=== PATIENT | male | born 1950 | race Hispanic/Latino ===

== ENCOUNTER 2019-12-18 16:59 | Inpatient (IN) | payer MEDICAID, MEDICARE ==
[~2019-12-18] VITALS: Ht 175.3 cm; Wt 84.9 kg
[2019-12-18 19:42] LABS: EOSINOPHILS % (AUTO) 2.4 % (0.0-8.0); HEMATOCRIT 37.9 % (42-54); LYMPHOCYTES % (AUTO) 21.5 % (21.0-51.0); MEAN CORPUSCULAR HEMOGLOBIN 28.9 pg (27.0-33.0); MEAN CORPUSCULAR HGB CONC 31.7 g/dL (32.0-36.0); MEAN CORPUSCULAR VOLUME 91.3 fL (79-99); MONOCYTES % (AUTO) 5.1 % (3.0-13.0); NEUTROPHILS % (AUTO) 69.7 % (40.0-77.0); PLATELET COUNT (AUTO) 655 K/uL (130-400); RED BLOOD CELL COUNT(AUTO) 4.15 MIL/uL (4.50-6.20); RED CELL DISTRIBUTION WIDTH 12.6 % (11.0-15.5); WHITE BLOOD COUNT (AUTO) 10.5 K/uL (4.8-10.8)
[2019-12-18 19:53] LABS: CREATININE 1.6 mg/dL (0.5-1.5); POTASSIUM 5.5 mmol/L (3.5-5.1)
[2019-12-18 19:55] LABS: INR 0.95 (0.85-1.15); PARTIAL THROMBOPLASTIN TIME 25.2 SEC (26.3-35.5); PROTHROMBIN TIME 10.3 SEC (9.6-11.6)
[2019-12-18 19:58] LABS: ALBUMIN 3.1 g/dL (3.5-5.0); BILIRUBIN,TOTAL 0.3 mg/dL (0.2-1.0); CRP QUANTITATIVE 46.9 mg/L (0.00-9.0); TOTAL PROTEIN, SERUM 9.2 g/dL (6.0-8.3)
[2019-12-18 20:28] LABS: APPEARANCE,URINE Clear (CLEAR); BILIRUBIN,URINE Negative (NEGATIVE); COLOR,URINE Yellow (YELLOW); GLUCOSE, URINE (UA) Negative (NEGATIVE); KETONES,URINE Negative (NEGATIVE); LEUKOCYTE ESTERASE ,URINE Negative (NEGATIVE); NITRATE,URINE Negative (NEGATIVE); OCCULT BLOOD,URINE Negative (NEGATIVE); PROTEIN,URINE Negative (NEGATIVE)
[2019-12-18 20:50] LABS: ERYTHROCYTE SEDIMENTATION RATE 115 MM/HR (0-20)
[2019-12-18] MEDS ORDERED: VANCOMYCIN 1GM+NS 250ML 250 ML IV ONE (22:36)
[2019-12-18] MEDS ORDERED: SODIUM CHLORIDE 0.9% 1000ML 1,000 ML IV ONE (22:36)
[2019-12-18] MEDS ORDERED: VANCOMYCIN 1GM+NS 250ML 250 ML IV SCH (23:30)
[2019-12-18] MEDS ORDERED: ACETAMINOPHEN 325 MG TAB PO PRN ×2 (23:30)
[2019-12-18] MEDS ORDERED: ONDANSETRON HCL 4 MG/2 ML VIAL IV PRN (23:30)
[2019-12-18] MEDS ORDERED: RENAL DOSE IV SCH (23:30)
[2019-12-18] MEDS ORDERED: VANCOMYCIN PROTOCOL PER PHARMACY IV PRN (23:30)
[2019-12-19 05:31] LABS: BASOPHILS % (AUTO) 0.6 % (0.0-5.0); EOSINOPHILS % (AUTO) 3.5 % (0.0-8.0); HEMATOCRIT 33.4 % (42-54); MEAN CORPUSCULAR HEMOGLOBIN 29.6 pg (27.0-33.0); MEAN CORPUSCULAR HGB CONC 32.3 g/dL (32.0-36.0); MEAN CORPUSCULAR VOLUME 91.5 fL (79-99); MONOCYTES % (AUTO) 6.8 % (3.0-13.0); NEUTROPHILS % (AUTO) 62.8 % (40.0-77.0); PLATELET COUNT (AUTO) 555 K/uL (130-400); RED BLOOD CELL COUNT(AUTO) 3.65 MIL/uL (4.50-6.20); RED CELL DISTRIBUTION WIDTH 12.5 % (11.0-15.5); WHITE BLOOD COUNT (AUTO) 10.3 K/uL (4.8-10.8)
[2019-12-19] MEDS ORDERED: CEFTRIAXONE SODIUM 1 GM ONE ×2 (05:32→09:15)
[2019-12-19] MEDS ORDERED: FAMOTIDINE/PF 20 MG/2 ML VIAL IV ONE (05:32)
[2019-12-19 05:57] LABS: ALANINE AMINOTRANSFERASE 22 U/L (12-78); ALBUMIN 2.8 g/dL (3.5-5.0); ASPARTATE AMINOTRANSFERASE 27 U/L (10-37); BILIRUBIN,TOTAL 0.3 mg/dL (0.2-1.0); CARBON DIOXIDE 26 mmol/L (21-32); CHLORIDE 104 mmol/L (101-111); CREATININE 1.2 mg/dL (0.5-1.5); GLOMERULAR FILTR. RATE CALC 64 mL/min (>60); GLUCOSE,RANDOM 83 mg/dL (70-105); POTASSIUM 5.6 mmol/L (3.5-5.1); SODIUM SERUM 135 mmol/L (136-145); TOTAL PROTEIN, SERUM 7.4 g/dL (6.0-8.3); UREA NITROGEN, BLOOD 26 mg/dL (7-18)
[2019-12-19 06:01] LABS: HEMOGLOBIN A1C 7.1 % (4.0-6.0)
[2019-12-19 06:38] LABS: ERYTHROCYTE SEDIMENTATION RATE 115 MM/HR (0-20)
[2019-12-19] MEDS ORDERED: COMPOUND IV REFRIGERATED 1 EACH IVSOLN MISC PRN (08:45)
[2019-12-19] MEDS: LINAGLIPTIN 5 MG TABLET PO SCH (09:00)
[2019-12-19] MEDS: CEFTRIAXONE SODIUM 1 GM IV SCH ×2 (09:00→20:11)
[2019-12-19] MEDS: FAMOTIDINE/PF 20 MG/2 ML VIAL IV SCH ×2 (09:00→20:12)
[2019-12-19] MEDS ORDERED: SODIUM CHLORIDE 0.9% 100 ML IV ONE (09:18)
[2019-12-19] MEDS: VANCOMYCIN 1.25 GM in SODIUM CHLORIDE 0.9% 250 ML IV SCH ×2 (10:00→21:54)
[2019-12-19 12:10] VITALS: BP 165/71
[2019-12-19 13:19] VITALS: BP 166/76
--- NOTE | 2019-12-19 13:41 | NUR ---
CHART CHECK COMPLETED. Pt IS A 69 Y.O. MALE ADMITTED SECONDARY TO SKIN TEAR DUE TO TOPHACEOUS GOUT VS ACUTE OSTEOMYELITIS. Pt HAS A PAST MEDICAL HISTORY SIGNIFICANT FOR HYPERTENSION, DMII, HLD, TOPHACEOUS GOUT, L KNEE REPLACEMENT. Pt CURRENTLY ON REGULAR TEXTURE,THIN LIQUID DIET (CONSISTENT CARB). PLEASE REQUEST FORMAL SKILLED SPEECH/SWALLOW EVALUATION IF Pt PRESENTS WITH +S/S OF ASPIRATION SUCH COUGH RESPONSE, THROAT CLEAR, OR WET VOCAL QUALITY DURING P.O. Addendum: 12/19/19 at 1344 by GRISELDA VALLEJO, SPT ST Amended: Links added.
[2019-12-19 15:19] VITALS: BP 166/76
--- NOTE | 2019-12-19 15:23 | NUR ---
SPOKE TO PT ABOUT MRI AND PT REFUSED TREATMENT. EXPLAINED TO HIM THAT THE MRI WAS TO DETECT AN INFECTION IN THE BONE IF THERE IS ONE AND HE SAID HE DOES NOT WANT IT BECAUSE HE DOES NOT HAVE AN INFECTION. FAMILY WAS ALSO CALLED AND SON AND MOTHER SAID IT WAS UP TO HIM IF HE WANTED THE MRI OR NOT. DR. GUIDRY NOTIFIED OF REFUSAL. NO FURTHER ORDERS RECEIVED
[2019-12-19] MEDS: INSULIN HUMULIN R 100 UNIT/ML 3ML SQ SCH ×2 (16:30→20:18)
[2019-12-19] MEDS: VANCOMYCIN PROTOCOL PER PHARMACY IV SCH ×2 (18:30→23:32)
[2019-12-19] MEDS: SODIUM CHLORIDE 0.9% 1000ML 1,000 ML IV SCH ×2 (18:47→19:20)
--- NOTE | 2019-12-19 18:56 | NUR ---
DRESSING TO RIGHT ARM CHANGED PT STATING ITS WET. WOUND TO ELBOW HAD A YELLOW DISCHARGE OOZING OUT AND SKIN WAS RED. NO ODOR. WOUND CLEANED AND PLACED 4X4 AND MICHELLE.
[2019-12-19 19:32] VITALS: BP 175/72
--- NOTE | 2019-12-19 22:11 | NUR ---
LEFT ARM Dressing to left arm changed,open ulcer,with small amount of serousanguinous drainage,no foul smell,cleansed with Ns,covered with 4x4 and ernie dressing.Pt denies pain.
--- NOTE | 2019-12-19 23:23 | NUR ---
BHARATHI Stearns,re pt.s bp.
[2019-12-19 23:27] VITALS: BP 182/80
--- NOTE | 2019-12-19 23:48 | NUR ---
MD CALL BACK Dr Stearns called back,notified re pt.s bp.He placed new order.
[2019-12-19] MEDS ORDERED: AMLODIPINE BESYLATE 5 MG TAB ONE (23:50)
--- NOTE | 2019-12-19 23:59 | NUR ---
bp amlodipine given as per md order. minoxidil not available.
[2019-12-20] VITALS (9 sets, daily range): BP systolic 138–185; BP diastolic 60–88
--- NOTE | 2019-12-20 00:01 | NUR ---
24 HR URINE COLLECTION Pt instructed re 24 urine collection for Uric acid,verbalized understanding.
[2019-12-20] MEDS ORDERED: MINOXIDIL 2.5 MG TAB ONE (00:15)
--- NOTE | 2019-12-20 00:28 | NUR ---
ASTRID Colon given this time.
--- NOTE | 2019-12-20 02:31 | NUR ---
FF UP Bp rechecked 170/60.Pt gets out of bed by himself,encouraged to call for help.
[2019-12-20] MEDS: SODIUM CHLORIDE 0.9% 1000ML 1,000 ML IV SCH ×2 (02:55→15:20)
[2019-12-20] MEDS: HYDRALAZINE HCL 20 MG/ML VIAL IV PRN (04:12)
--- NOTE | 2019-12-20 04:15 | NUR ---
HYDRALAZINE Hydralazine given for bp sys>160.
--- NOTE | 2019-12-20 04:55 | NUR ---
PAGED Paged Dr dela cruz,pt states he does not feel good.Pt appears anxious,bp 189/82,heart rate 100 sinus tach on bedside monitor,02 sat99% room air,resp 20.Blood sugar checked 90.
[2019-12-20] MEDS: MORPHINE SULFATE 2 MG/ML 1ML SYG IV PRN ×2 (05:17→09:38)
--- NOTE | 2019-12-20 05:22 | NUR ---
PAIN Morphine given for c/o pain to left arm.
--- NOTE | 2019-12-20 05:37 | NUR ---
MED EFFECT Pt appears more calm,bp 156/66.
[2019-12-20] MEDS: INSULIN HUMULIN R 100 UNIT/ML 3ML SQ SCH ×4 (05:57→21:00)
--- NOTE | 2019-12-20 06:17 | NUR ---
MD Dr Stearns came to see pt.Update given,see new orders.
[2019-12-20] MEDS: FAMOTIDINE/PF 20 MG/2 ML VIAL IV SCH ×2 (08:47→21:29)
[2019-12-20] MEDS: CEFTRIAXONE SODIUM 1 GM IV SCH ×2 (08:48→21:29)
[2019-12-20] MEDS: LINAGLIPTIN 5 MG TABLET PO SCH (08:48)
[2019-12-20] MEDS: METOPROLOL TARTRATE 25 MG TAB PO SCH (08:48)
[2019-12-20] MEDS: AMLODIPINE BESYLATE 5 MG TAB PO SCH ×3 (08:48→20:04)
[2019-12-20] MEDS ORDERED: MINOXIDIL 2.5 MG TAB PO SCH (09:00)
[2019-12-20] MEDS: VANCOMYCIN 1.25 GM in SODIUM CHLORIDE 0.9% 250 ML IV SCH ×2 (10:02→22:40)
[2019-12-20] MEDS ORDERED: GADODIAMIDE 10 MMOL/20 ML VIAL IV ONE (13:46)
--- NOTE | 2019-12-20 15:45 | NUR ---
WOUND CARE NURSE HERE TO ASSESS RT AND LEFT ELBOW WOUND CLEASE WITH SALINE, APPLY MEDIHONEYAND COVER WITH GAUZE, KERLIX, TAPE - DAILY AND PRN
--- NOTE | 2019-12-20 16:15 | NUR ---
[facility] CONSULT PATIENT ASSESSED REQUESTED: [facility] RECOMMENDATIONS SUBMITTED AND REPORT GIVEN TO PATIENT'S NURSE. Addendum: 12/21/19 at 0809 by ISRRAEL GRAHAM LVN Amended: Links added.
--- NOTE | 2019-12-20 16:48 | NUR ---
HA NOTE/IA UNABLE TO MEET WITH PATIENT IN ROOM. SON CALLED, HARINDER HURT [phone]. PER SON, PATIENT LIVES WITH SPOUSE, HAS USE OF CANE ONLY WHEN FEELS WEAK, INDEPENDENT FOR THE MOST PART WITH ADLS BUT REQUIRES ASSISTANCE WITH DRESSING, HAS PROVIDER 30HR PER WEEK, AND SON FEELS SAFE FOR PATIENT TO RETURN HOME ONCE DISCHARGED FROM HOSPITAL ONCE MEDICALLY CLEARED. Addendum: 12/20/19 at 1651 by CLAIRE AMBROSE RN CM Amended: Links added.
[2019-12-20] MEDS: MINOXIDIL 2.5 MG TAB PO SCH ×2 (20:03)
[2019-12-21] VITALS: BP 185/92
[2019-12-21] MEDS: SODIUM CHLORIDE 0.9% 1000ML 1,000 ML IV SCH ×2 (01:05→09:57)
[2019-12-21] MEDS: HYDRALAZINE HCL 20 MG/ML VIAL IV PRN (01:05)
[2019-12-21] MEDS: MORPHINE SULFATE 2 MG/ML 1ML SYG IV PRN (01:06)
[2019-12-21 04:15] VITALS: BP 147/67
[2019-12-21 05:19] LABS: BASOPHILS % (AUTO) 0.7 % (0.0-5.0); EOSINOPHILS % (AUTO) 2.2 % (0.0-8.0); HEMATOCRIT 32.5 % (42-54); MEAN CORPUSCULAR HEMOGLOBIN 29.9 pg (27.0-33.0); MEAN CORPUSCULAR HGB CONC 32.9 g/dL (32.0-36.0); MEAN CORPUSCULAR VOLUME 90.8 fL (79-99); MONOCYTES % (AUTO) 6.8 % (3.0-13.0); NEUTROPHILS % (AUTO) 75.9 % (40.0-77.0); PLATELET COUNT (AUTO) 513 K/uL (130-400); RED BLOOD CELL COUNT(AUTO) 3.58 MIL/uL (4.50-6.20); WHITE BLOOD COUNT (AUTO) 12.4 K/uL (4.8-10.8)
[2019-12-21 05:24] LABS: CREATININE 1.2 mg/dL (0.5-1.5); CRP QUANTITATIVE 61.8 mg/L (0.00-9.0); POTASSIUM 4.2 mmol/L (3.5-5.1)
[2019-12-21 05:37] LABS: B-TYPE NATRIURETIC PEPTIDE 56 pg/mL (0-100)
[2019-12-21] MEDS: INSULIN HUMULIN R 100 UNIT/ML 3ML SQ SCH ×2 (06:10→11:30)
[2019-12-21 07:30] VITALS: BP 154/85
[2019-12-21] MEDS: METOPROLOL TARTRATE 25 MG TAB PO SCH (08:52)
[2019-12-21] MEDS: AMLODIPINE BESYLATE 5 MG TAB PO SCH (08:52)
[2019-12-21] MEDS: LINAGLIPTIN 5 MG TABLET PO SCH (08:52)
[2019-12-21] MEDS: CEFTRIAXONE SODIUM 1 GM IV SCH (08:52)
[2019-12-21] MEDS: FAMOTIDINE/PF 20 MG/2 ML VIAL IV SCH (08:52)
[2019-12-21] MEDS ORDERED: HONEY 1 APPL/ML TUBE TP SCH (09:00)
[2019-12-21] MEDS: VANCOMYCIN 1.25 GM in SODIUM CHLORIDE 0.9% 250 ML IV SCH (10:14)
[2019-12-21 11:34] VITALS: BP 141/57
[2019-12-21] MEDS ORDERED: CEFUROXIME AXETIL 250 MG TABLET PO SCH (13:45)
--- NOTE | 2019-12-21 17:30 | NUR ---
pt discharged to son, fu/with pcp on wednesday, and wound care clinic on wednesday. new prescription, for ceftin given to son.
[2019-12-22] MEDS ORDERED: METOPROLOL TARTRATE 25 MG TAB PO SCH (09:00)
[2019-12-22] MEDS ORDERED: ALLOPURINOL 100 MG TABLET PO SCH (09:00)
== END 2019-12-21 17:45 | disposition home or self-care (01) | DRG 605 ==
LOC: EDH 16:59 → EDHIP 23:20 → DAHIP 12-19 12:44
PROVIDERS: ADMIT Internal Medicine; ATTEND Internal Medicine
DX: S51.012A Laceration without foreign body of left elbow, initial encounter (principal); L03.114 Cellulitis of left upper limb; E87.1 Hypo-osmolality and hyponatremia; L02.414 Cutaneous abscess of left upper limb; M1A.9XX1 Chronic gout, unspecified, with tophus (tophi); I10 Essential (primary) hypertension; E11.9 Type 2 diabetes mellitus without complications; E78.5 Hyperlipidemia, unspecified; Z96.653 Presence of artificial knee joint, bilateral; E87.5 Hyperkalemia; M13.80 Other specified arthritis, unspecified site; Z53.20 Procedure and treatment not carried out because of patient's decision for unspecified reasons; E66.9 Obesity, unspecified; Z68.27 Body mass index [BMI] 27.0-27.9, adult; Y93.89 Activity, other specified; Y92.89 Other specified places as the place of occurrence of the external cause; Y99.8 Other external cause status; Z79.899 Other long term (current) drug therapy; Z91.19 Patient's noncompliance with other medical treatment and regimen; Z83.3 Family history of diabetes mellitus
CPT/HCPCS: 36415; 71045; 73080; 80048; 80053; 80202; 81003; 82360; 82948; 83036; 83880; 84145; 84550; 84560; 85025; 85610; 85651; 85730; 86140; 87040; 87070; 87076; 87077; 87186; A9579; G0378; J0360; J0696; J3370; J3490; J7030; J7050

== ENCOUNTER 2021-11-04 20:18 | Inpatient (IN) | payer MEDICARE ==
[~2021-11-04] VITALS: Ht 175.3 cm; Wt 92.5 kg
[2021-11-04] MEDS ORDERED: 0.9%NACL 1000ML 1,000 ML IV ONE (22:00)
[2021-11-04] MEDS ORDERED: VANCOMYCIN 1G VIAL IVPB ONE (22:00)
[2021-11-04] MEDS ORDERED: MORPHINE 4 MG SYG IVP ONE (22:00)
[2021-11-04] MEDS ORDERED: KETOROLAC 15MG/ML VIAL (15MG/ML) IV ONE (22:00)
[2021-11-04] MEDS ORDERED: ONDANSETRON 4MG INJ IVP ONE (22:00)
[2021-11-04 22:19] LABS: BASOPHILS % (AUTO) 0.3 % (0.0-5.0); EOSINOPHILS % (AUTO) 0.8 % (0.0-8.0); HEMATOCRIT 36.9 % (42-54); LYMPHOCYTES % (AUTO) 11.6 % (21.0-51.0); MEAN CORPUSCULAR HEMOGLOBIN 30.7 pg (27.0-33.0); MEAN CORPUSCULAR HGB CONC 33.1 g/dL (32.0-36.0); MEAN CORPUSCULAR VOLUME 92.9 fL (79-99); MONOCYTES % (AUTO) 5.4 % (3.0-13.0); NEUTROPHILS % (AUTO) 81.4 % (40.0-77.0); PLATELET COUNT (AUTO) 379 K/uL (130-400); RED BLOOD CELL COUNT(AUTO) 3.97 MIL/uL (4.50-6.20); WHITE BLOOD COUNT (AUTO) 14.3 K/uL (4.8-10.8)
[2021-11-04 22:32] LABS: CREATININE 1.3 mg/dL (0.5-1.5); POTASSIUM 4.2 mmol/L (3.5-5.1)
[2021-11-04 22:37] LABS: ALBUMIN 3.3 g/dL (3.5-5.0); BILIRUBIN,TOTAL 0.3 mg/dL (0.2-1.0); TOTAL PROTEIN, SERUM 8.9 g/dL (6.0-8.3); URIC ACID 8.9 mg/dL (2.6-7.2)
[2021-11-04] MEDS: ZOSYN 3.375GM +NS 50ML IV SCH (22:56)
[2021-11-04] MEDS ORDERED: VANCOMYCIN 1G/250ML KIT 250 ML IV ONE (23:25)
[2021-11-04] MEDS ORDERED: VANCOMYCIN PROTOCOL PER PHARMACY IV PRN (23:30)
[2021-11-04] MEDS ORDERED: SOLU-MEDROL 40MG VIAL IVP ONE (23:30)
[2021-11-04] MEDS ORDERED: ONDANSETRON 4MG INJ IV PRN (23:30)
[2021-11-04] MEDS ORDERED: ACETAMINOPHEN 325 MG TAB PO PRN (23:30)
[2021-11-05] MEDS ORDERED: INDOMETHACIN 25 MG CAP PO SCH
[2021-11-05] MEDS: CEFEPIME HCL 2 GM VIAL IVP SCH ×3 (01:01→22:56)
[2021-11-05] MEDS ORDERED: SOLU-MEDROL 40MG VIAL ONE (01:03)
[2021-11-05 05:38] LABS: BASOPHILS % (AUTO) 0.3 % (0.0-5.0); EOSINOPHILS % (AUTO) 0.5 % (0.0-8.0); HEMATOCRIT 40.2 % (42-54); LYMPHOCYTES % (AUTO) 9.3 % (21.0-51.0); MEAN CORPUSCULAR HEMOGLOBIN 30.6 pg (27.0-33.0); MEAN CORPUSCULAR HGB CONC 32.8 g/dL (32.0-36.0); MEAN CORPUSCULAR VOLUME 93.3 fL (79-99); MONOCYTES % (AUTO) 0.9 % (3.0-13.0); NEUTROPHILS % (AUTO) 88.5 % (40.0-77.0); PLATELET COUNT (AUTO) 401 K/uL (130-400); RED BLOOD CELL COUNT(AUTO) 4.31 MIL/uL (4.50-6.20); WHITE BLOOD COUNT (AUTO) 15.2 K/uL (4.8-10.8)
[2021-11-05 05:47] LABS: HEMOGLOBIN A1C 6.4 % (4.0-6.0)
[2021-11-05] MEDS: MORPHINE 4 MG SYG IVP PRN ×3 (05:47→21:22)
[2021-11-05 05:58] LABS: CREATININE 1.3 mg/dL (0.5-1.5); MAGNESIUM 1.9 mg/dL (1.80-2.40); PHOSPHORUS 3.8 mg/dL (2.5-4.9); POTASSIUM 4.7 mmol/L (3.5-5.1)
[2021-11-05] MEDS: INSULIN HUMULIN R 100 UNIT/ML 3ML SQ SCH ×4 (07:30→21:00)
[2021-11-05 08:45] VITALS: BP 188/76
[2021-11-05] MEDS: FAMOTIDINE 20MG VIAL IV SCH (09:00)
[2021-11-05] MEDS ORDERED: VANCOMYCIN 1G/250ML KIT 250 ML IV SCH (09:00)
[2021-11-05 11:25] VITALS: BP 161/76
[2021-11-05] MEDS: ALLOPURINOL 100 MG TABLET PO SCH ×2 (12:00)
[2021-11-05] MEDS: ENOXAPARIN SODIUM 40 MG/0.4 ML SYRINGE SQ SCH (12:00)
[2021-11-05] MEDS ORDERED: ERGO500093 PO (15:05)
[2021-11-05] MEDS ORDERED: ATOR10TA69 PO (15:05)
[2021-11-05] MEDS ORDERED: NEBI10TA12 PO (15:05)
[2021-11-05] MEDS ORDERED: AMLO-143 PO (15:05)
[2021-11-05 15:20] VITALS: BP 166/80
[2021-11-05 20:00] VITALS: BP 204/97
[2021-11-05] MEDS: VANCOMYCIN 500MG+NS 100ML 100 ML IV SCH (21:21)
[2021-11-05] MEDS: ZOSYN 3.375GM +NS 50ML IV SCH (22:00)
[2021-11-05] MEDS ORDERED: 0.9% NACL 500ML IV.SOLN 500 ML IV ONE (22:46)
[2021-11-06] VITALS (7 sets, daily range): BP systolic 120–199; BP diastolic 63–90
[2021-11-06 04:37] LABS: BASOPHILS % (AUTO) 0.2 % (0.0-5.0); EOSINOPHILS % (AUTO) 0.4 % (0.0-8.0); HEMATOCRIT 32.2 % (42-54); LYMPHOCYTES % (AUTO) 15.4 % (21.0-51.0); MEAN CORPUSCULAR HEMOGLOBIN 30.5 pg (27.0-33.0); MEAN CORPUSCULAR HGB CONC 32.9 g/dL (32.0-36.0); MEAN CORPUSCULAR VOLUME 92.8 fL (79-99); MONOCYTES % (AUTO) 3.6 % (3.0-13.0); NEUTROPHILS % (AUTO) 79.8 % (40.0-77.0); PLATELET COUNT (AUTO) 390 K/uL (130-400); RED BLOOD CELL COUNT(AUTO) 3.47 MIL/uL (4.50-6.20); RED CELL DISTRIBUTION WIDTH 11.9 % (11.0-15.5)
[2021-11-06 04:56] LABS: ALBUMIN 2.6 g/dL (3.5-5.0); BILIRUBIN,TOTAL 0.3 mg/dL (0.2-1.0); CREATININE 1.3 mg/dL (0.5-1.5); POTASSIUM 4.4 mmol/L (3.5-5.1); TOTAL PROTEIN, SERUM 7.1 g/dL (6.0-8.3)
[2021-11-06] MEDS: INSULIN HUMULIN R 100 UNIT/ML 3ML SQ SCH ×4 (06:36→21:00)
[2021-11-06] MEDS: MORPHINE 4 MG SYG IVP PRN (07:51)
[2021-11-06] MEDS: FAMOTIDINE 20MG VIAL IV SCH (08:28)
[2021-11-06] MEDS: ALLOPURINOL 100 MG TABLET PO SCH (08:28)
[2021-11-06] MEDS: ENOXAPARIN SODIUM 40 MG/0.4 ML SYRINGE SQ SCH (08:29)
[2021-11-06] MEDS: VANCOMYCIN 500MG+NS 100ML 100 ML IV SCH (10:17)
[2021-11-06] MEDS: CEFEPIME HCL 2 GM VIAL IVP SCH (11:13)
[2021-11-06] MEDS ORDERED: LABETALOL 20MG VIAL IV PRN (13:00)
[2021-11-06] MEDS ORDERED: LISINOPRIL 10 MG TABLET PO SCH (13:55)
[2021-11-06] MEDS: NIFEDIPINE 10 MG CAP PO SCH (15:01)
[2021-11-07] VITALS (27 sets, daily range): BP systolic 126–180; BP diastolic 54–124
[2021-11-07] MEDS: VANCOMYCIN 500MG+NS 100ML 100 ML IV SCH (01:06)
[2021-11-07] MEDS: CEFEPIME HCL 2 GM VIAL IVP SCH (01:07)
[2021-11-07] MEDS: ATORVASTATIN 10 MG TABLET PO SCH ×2 (01:07→20:00)
[2021-11-07] MEDS: NIFEDIPINE 10 MG CAP PO SCH (01:07)
[2021-11-07] MEDS: MORPHINE 4 MG SYG IVP PRN ×3 (01:17→17:47)
[2021-11-07 05:07] LABS: BASOPHILS % (AUTO) 0.5 % (0.0-5.0); EOSINOPHILS % (AUTO) 4.4 % (0.0-8.0); HEMATOCRIT 34.3 % (42-54); LYMPHOCYTES % (AUTO) 27.2 % (21.0-51.0); MEAN CORPUSCULAR HEMOGLOBIN 30.3 pg (27.0-33.0); MEAN CORPUSCULAR HGB CONC 32.7 g/dL (32.0-36.0); MEAN CORPUSCULAR VOLUME 92.7 fL (79-99); MONOCYTES % (AUTO) 4.4 % (3.0-13.0); PLATELET COUNT (AUTO) 377 K/uL (130-400); RED CELL DISTRIBUTION WIDTH 12.1 % (11.0-15.5); WHITE BLOOD COUNT (AUTO) 9.6 K/uL (4.8-10.8)
[2021-11-07 05:29] LABS: ALBUMIN 2.7 g/dL (3.5-5.0); BILIRUBIN,TOTAL 0.2 mg/dL (0.2-1.0); CREATININE 1.3 mg/dL (0.5-1.5); CRP QUANTITATIVE 38.1 mg/L (0.00-9.0); POTASSIUM 4.3 mmol/L (3.5-5.1)
[2021-11-07 05:32] LABS: HEMOGLOBIN A1C 6.5 % (4.0-6.0)
[2021-11-07] MEDS: INSULIN HUMULIN R 100 UNIT/ML 3ML SQ SCH ×4 (05:46→20:17)
[2021-11-07] MEDS: ALLOPURINOL 100 MG TABLET PO SCH (09:00)
[2021-11-07] MEDS: ENOXAPARIN SODIUM 40 MG/0.4 ML SYRINGE SQ SCH (09:00)
[2021-11-07] MEDS ORDERED: LISINOPRIL 10 MG TABLET PO SCH (09:00)
[2021-11-07] MEDS ORDERED: RENAL DOSE IV SCH (09:30)
[2021-11-07] MEDS: FAMOTIDINE 20MG VIAL IV SCH (09:42)
[2021-11-07] MEDS: NAFCILLIN 2GM+ NS 100ML 100 ML IV SCH ×3 (13:43→20:00)
[2021-11-07] MEDS ORDERED: 0.9%NACL 1000ML 1,000 ML IV ONE (13:54)
[2021-11-07] MEDS ORDERED: GLYCOPYRROLATE 1 MG/5 ML SYRINGE ONE (15:58)
[2021-11-07] MEDS ORDERED: ROCURONIUM 10MG/1ML SYR 10 MG/ML ML ONE (15:58)
[2021-11-07] MEDS ORDERED: MIDAZOLAM HCL 1 MG/ML 2ML VIAL ONE (16:02)
[2021-11-07] MEDS ORDERED: SUCCINYLCHOLINE 200MG/10ML SYR ONE (16:06)
[2021-11-07] MEDS ORDERED: EPHEDRINE SULFATE 50 MG/ML AMPULE ONE (16:12)
[2021-11-07] MEDS ORDERED: LIDOCAINE HCL 4% LTA SOL 4 ML VIAL ONE (16:13)
[2021-11-07] MEDS ORDERED: FENTANYL CITRATE PF 50 MCG/1 ML 2ML VIAL ONE (16:20)
[2021-11-07] MEDS ORDERED: ONDANSETRON 4MG INJ ONE (16:49)
[2021-11-07] MEDS ORDERED: MEPERIDINE-PF 25 MG/ML SYG ONE ×2 (17:01→17:12)
[2021-11-07] MEDS ORDERED: KETOROLAC 15MG/ML VIAL (15MG/ML) ONE (17:11)
[2021-11-08] VITALS (7 sets, daily range): BP systolic 139–165; BP diastolic 63–80
[2021-11-08] MEDS: NAFCILLIN 2GM+ NS 100ML 100 ML IV SCH ×7 (00:04→23:26)
[2021-11-08] MEDS: MORPHINE 4 MG SYG IVP PRN ×4 (00:10→22:26)
[2021-11-08] MEDS ORDERED: MORPHINE 2 MG SYG ONE (04:26)
[2021-11-08] MEDS ORDERED: MORPHINE 2 MG SYG IVP ONE (04:30)
[2021-11-08] MEDS: INSULIN HUMULIN R 100 UNIT/ML 3ML SQ SCH ×4 (06:00→20:09)
[2021-11-08 06:02] LABS: BASOPHILS % (AUTO) 0.5 % (0.0-5.0); EOSINOPHILS % (AUTO) 3.6 % (0.0-8.0); HEMATOCRIT 32.9 % (42-54); MEAN CORPUSCULAR HEMOGLOBIN 30.6 pg (27.0-33.0); MEAN CORPUSCULAR HGB CONC 32.5 g/dL (32.0-36.0); NEUTROPHILS % (AUTO) 66.5 % (40.0-77.0); PLATELET COUNT (AUTO) 383 K/uL (130-400); RED CELL DISTRIBUTION WIDTH 12.3 % (11.0-15.5); WHITE BLOOD COUNT (AUTO) 9.3 K/uL (4.8-10.8)
[2021-11-08 06:28] LABS: ALBUMIN 2.7 g/dL (3.5-5.0); BILIRUBIN,TOTAL 0.6 mg/dL (0.2-1.0); CREATININE 1.3 mg/dL (0.5-1.5); CRP QUANTITATIVE 32.4 mg/L (0.00-9.0); POTASSIUM 4.4 mmol/L (3.5-5.1)
[2021-11-08] MEDS: LISINOPRIL 10 MG TABLET PO SCH (08:35)
[2021-11-08] MEDS: ENOXAPARIN SODIUM 40 MG/0.4 ML SYRINGE SQ SCH (08:35)
[2021-11-08] MEDS: FAMOTIDINE 20MG VIAL IV SCH (08:35)
[2021-11-08] MEDS: NIFEDIPINE ER 30 MG TAB PO SCH (08:35)
[2021-11-08] MEDS: ALLOPURINOL 100 MG TABLET PO SCH (08:35)
[2021-11-08] MEDS: ATORVASTATIN 10 MG TABLET PO SCH (20:11)
[2021-11-09 00:27] VITALS: BP 129/72
[2021-11-09] MEDS: NAFCILLIN 2GM+ NS 100ML 100 ML IV SCH ×5 (04:04→20:30)
[2021-11-09] MEDS: MORPHINE 4 MG SYG IVP PRN ×2 (04:06→16:18)
[2021-11-09 04:16] VITALS: BP 157/53
[2021-11-09 05:01] LABS: BASOPHILS % (AUTO) 0.4 % (0.0-5.0); EOSINOPHILS % (AUTO) 3.6 % (0.0-8.0); LYMPHOCYTES % (AUTO) 24.5 % (21.0-51.0); MEAN CORPUSCULAR HEMOGLOBIN 30.6 pg (27.0-33.0); MEAN CORPUSCULAR HGB CONC 32.3 g/dL (32.0-36.0); MEAN CORPUSCULAR VOLUME 94.9 fL (79-99); MONOCYTES % (AUTO) 5.5 % (3.0-13.0); NEUTROPHILS % (AUTO) 65.6 % (40.0-77.0); PLATELET COUNT (AUTO) 352 K/uL (130-400); RED BLOOD CELL COUNT(AUTO) 3.69 MIL/uL (4.50-6.20); RED CELL DISTRIBUTION WIDTH 12.2 % (11.0-15.5); WHITE BLOOD COUNT (AUTO) 9.1 K/uL (4.8-10.8)
[2021-11-09 05:19] LABS: ALBUMIN 2.8 g/dL (3.5-5.0); BILIRUBIN,TOTAL 0.7 mg/dL (0.2-1.0); CREATININE 1.2 mg/dL (0.5-1.5); CRP QUANTITATIVE 50.6 mg/L (0.00-9.0); POTASSIUM 4.1 mmol/L (3.5-5.1); TOTAL PROTEIN, SERUM 7.3 g/dL (6.0-8.3)
[2021-11-09] MEDS: INSULIN HUMULIN R 100 UNIT/ML 3ML SQ SCH ×4 (05:47→20:59)
[2021-11-09] MEDS ORDERED: HYDROMORPHONE 1 MG INJ ONE (06:48)
[2021-11-09] MEDS ORDERED: HYDROMORPHONE 1 MG INJ IVP SCH (07:00)
[2021-11-09 07:50] VITALS: BP 170/72
[2021-11-09] MEDS: FAMOTIDINE 20MG VIAL IV SCH (08:49)
[2021-11-09] MEDS: LISINOPRIL 10 MG TABLET PO SCH (08:49)
[2021-11-09] MEDS: NIFEDIPINE ER 30 MG TAB PO SCH (08:49)
[2021-11-09] MEDS: ENOXAPARIN SODIUM 40 MG/0.4 ML SYRINGE SQ SCH (08:50)
[2021-11-09] MEDS: ALLOPURINOL 100 MG TABLET PO SCH (09:39)
[2021-11-09 11:47] VITALS: BP 169/70
[2021-11-09 17:30] VITALS: BP 195/82
[2021-11-09 19:30] VITALS: BP 164/85
[2021-11-09] MEDS: ATORVASTATIN 10 MG TABLET PO SCH (20:30)
[2021-11-10] MEDS: NAFCILLIN 2GM+ NS 100ML 100 ML IV SCH ×3 (04:00→09:47)
[2021-11-10 07:05] VITALS: BP 184/83
[2021-11-10] MEDS: MORPHINE 4 MG SYG IVP PRN (07:29)
[2021-11-10] MEDS: INSULIN HUMULIN R 100 UNIT/ML 3ML SQ SCH ×2 (07:30→11:30)
[2021-11-10] MEDS: NIFEDIPINE ER 30 MG TAB PO SCH (08:36)
[2021-11-10] MEDS: FAMOTIDINE 20MG VIAL IV SCH (08:37)
[2021-11-10] MEDS: LISINOPRIL 10 MG TABLET PO SCH (08:38)
[2021-11-10] MEDS: ENOXAPARIN SODIUM 40 MG/0.4 ML SYRINGE SQ SCH (08:39)
[2021-11-10 09:18] LABS: HEMATOCRIT 45.6 % (42-54); MEAN CORPUSCULAR HEMOGLOBIN 30.6 pg (27.0-33.0); MEAN CORPUSCULAR HGB CONC 32.5 g/dL (32.0-36.0); MEAN CORPUSCULAR VOLUME 94.2 fL (79-99); RED BLOOD CELL COUNT(AUTO) 4.84 MIL/uL (4.50-6.20); RED CELL DISTRIBUTION WIDTH 12.3 % (11.0-15.5); WHITE BLOOD COUNT (AUTO) 7.7 K/uL (4.8-10.8)
[2021-11-10] MEDS: ALLOPURINOL 100 MG TABLET PO SCH (09:55)
[2021-11-10 11:05] VITALS: BP 184/90
[2021-11-10 11:45] LABS: CREATININE 1.2 mg/dL (0.5-1.5)
[2021-11-10 15:40] VITALS: BP 183/84
[2021-11-10] MEDS ORDERED: AMOX500C2 PO (16:17)
[2021-11-10] MEDS ORDERED: NIFE90TA65 PO (16:17)
[2021-11-10] MEDS ORDERED: MINO2.5 PO (16:17)
[2021-11-10] MEDS ORDERED: LISI40TA9 PO (16:17)
[2021-11-10] MEDS ORDERED: ALLO300T2 PO (16:17)
[2021-11-10] MEDS ORDERED: LISINOPRIL 20 MG TABLET PO SCH (17:15)
[2021-11-10] MEDS: MINOXIDIL 2.5 MG TAB PO SCH ×2 (17:52→20:59)
[2021-11-10] MEDS ORDERED: LABETALOL 20MG SYG IV PRN (19:30)
[2021-11-10 19:53] VITALS: BP 192/96
[2021-11-10 20:19] VITALS: BP 183/84
[2021-11-10] MEDS: ATORVASTATIN 10 MG TABLET PO SCH (20:59)
== END 2021-11-10 20:00 | disposition left against medical advice (07) | DRG 581 ==
LOC: EDH 20:18 → EDHIP 23:05 → 3CH 11-05 08:45
PROVIDERS: ADMIT Internal Medicine; ATTEND Internal Medicine
PROC: 0JBK0ZZ Excision of Left Hand Subcutaneous Tissue and Fascia, Open Approach (ICD-10-PCS; principal; 2021-11-07 16:03)
DX: L03.114 Cellulitis of left upper limb (principal); M10.9 Gout, unspecified; E11.9 Type 2 diabetes mellitus without complications; I10 Essential (primary) hypertension; Z96.652 Presence of left artificial knee joint; D64.9 Anemia, unspecified; B95.61 Methicillin susceptible Staphylococcus aureus infection as the cause of diseases classified elsewhere; Z20.822 Contact with and (suspected) exposure to COVID-19; E78.00 Pure hypercholesterolemia, unspecified; M06.9 Rheumatoid arthritis, unspecified; E78.5 Hyperlipidemia, unspecified; Z82.49 Family history of ischemic heart disease and other diseases of the circulatory system; S61.402A Unspecified open wound of left hand, initial encounter; X58.XXXA Exposure to other specified factors, initial encounter; Y93.89 Activity, other specified; Y92.89 Other specified places as the place of occurrence of the external cause; Y99.8 Other external cause status
CPT/HCPCS: 36415; 73120; 80048; 80053; 80202; 82948; 83036; 83605; 83735; 84100; 84145; 84550; 85025; 85027; 85651; 86140; 87040; 87070; 87076; 87077; 87186; 87205; 87635; G0378; J0330; J0692; J1170; J1650; J1815; J1885; J2175; J2250; J2270; J2405; J2543; J2920; J3010; J3370; J3490; J7030; J7040

== ENCOUNTER → 2021-11-20 | Outpatient (CLI) | payer MEDICARE ==
[~2021-11-20] MED LIST: ALLO300T2 PO; AMOX500C2 PO; ATOR10TA69 PO; ERGO500093 PO; LIDOCAINE HCL 4% LTA SOL 4 ML VIAL TP ONE; LISI40TA9 PO; MINO2.5 PO; NIFE90TA65 PO
== END | disposition home or self-care (01) ==
LOC: WHH 10:06
PROVIDERS: ATTEND Family Medicine
DX: T81.89XA Other complications of procedures, not elsewhere classified, initial encounter (principal); M1A.0421 Idiopathic chronic gout, left hand, with tophus (tophi); M1A.0411 Idiopathic chronic gout, right hand, with tophus (tophi); E11.9 Type 2 diabetes mellitus without complications; E78.5 Hyperlipidemia, unspecified; I10 Essential (primary) hypertension; E78.00 Pure hypercholesterolemia, unspecified; M06.9 Rheumatoid arthritis, unspecified; Z96.653 Presence of artificial knee joint, bilateral; Y83.8 Other surgical procedures as the cause of abnormal reaction of the patient, or of later complication, without mention of misadventure at the time of the procedure; Y92.238 Other place in hospital as the place of occurrence of the external cause
CPT/HCPCS: 11042; A4450; A6021; A6197

== ENCOUNTER → 2021-12-11 | Outpatient (CLI) | payer MEDICARE | END | disposition home or self-care (01) | LOC: WHH 10:49 | PROVIDERS: ATTEND Family Medicine | DX: T81.89XD Other complications of procedures, not elsewhere classified, subsequent encounter (principal); R20.8 Other disturbances of skin sensation; S61.402D Unspecified open wound of left hand, subsequent encounter; S61.401D Unspecified open wound of right hand, subsequent encounter; M1A.0421 Idiopathic chronic gout, left hand, with tophus (tophi); M1A.0411 Idiopathic chronic gout, right hand, with tophus (tophi); E11.9 Type 2 diabetes mellitus without complications; E78.5 Hyperlipidemia, unspecified; I10 Essential (primary) hypertension; E78.00 Pure hypercholesterolemia, unspecified; M06.9 Rheumatoid arthritis, unspecified; Z96.653 Presence of artificial knee joint, bilateral; Y83.8 Other surgical procedures as the cause of abnormal reaction of the patient, or of later complication, without mention of misadventure at the time of the procedure; X58.XXXD Exposure to other specified factors, subsequent encounter | CPT/HCPCS: G0463 ==

== ENCOUNTER → 2021-12-25 | Outpatient (CLI) | payer MEDICARE | END | disposition home or self-care (01) | LOC: WHH 10:55 | PROVIDERS: ATTEND Family Medicine | DX: T81.89XD Other complications of procedures, not elsewhere classified, subsequent encounter (principal); E11.622 Type 2 diabetes mellitus with other skin ulcer; L98.492 Non-pressure chronic ulcer of skin of other sites with fat layer exposed; R20.8 Other disturbances of skin sensation; S61.402D Unspecified open wound of left hand, subsequent encounter; S61.401D Unspecified open wound of right hand, subsequent encounter; M1A.0421 Idiopathic chronic gout, left hand, with tophus (tophi); M1A.0411 Idiopathic chronic gout, right hand, with tophus (tophi); E78.5 Hyperlipidemia, unspecified; I10 Essential (primary) hypertension; E78.00 Pure hypercholesterolemia, unspecified; M06.9 Rheumatoid arthritis, unspecified; Z96.653 Presence of artificial knee joint, bilateral; Y83.8 Other surgical procedures as the cause of abnormal reaction of the patient, or of later complication, without mention of misadventure at the time of the procedure; X58.XXXD Exposure to other specified factors, subsequent encounter | CPT/HCPCS: 11042 ==

== ENCOUNTER → 2023-02-25 | Outpatient (CLI) | payer OTHER, MEDICARE ==
[~2023-02-25] MED LIST changes: -AMOX500C2 PO; -ATOR10TA69 PO; -LIDOCAINE HCL 4% LTA SOL 4 ML VIAL TP ONE
== END | disposition home or self-care (01) ==
LOC: CANPRECLI → RAH 13:50
PROVIDERS: ATTEND Internal Medicine Cardiovascular Disease
DX: I10 Essential (primary) hypertension (principal); I63.9 Cerebral infarction, unspecified
CPT/HCPCS: 93306

== ENCOUNTER → 2023-09-30 | Outpatient (CLI) | payer OTHER, MEDICARE | END | disposition home or self-care (01) | LOC: WHH 10:42 | PROVIDERS: ATTEND Nurse Practitioner Family | DX: S61.204A Unspecified open wound of right ring finger without damage to nail, initial encounter (principal); S61.203A Unspecified open wound of left middle finger without damage to nail, initial encounter; E11.622 Type 2 diabetes mellitus with other skin ulcer; L98.491 Non-pressure chronic ulcer of skin of other sites limited to breakdown of skin; M1A.0420 Idiopathic chronic gout, left hand, without tophus (tophi); M1A.0411 Idiopathic chronic gout, right hand, with tophus (tophi); E11.42 Type 2 diabetes mellitus with diabetic polyneuropathy; I10 Essential (primary) hypertension; E78.5 Hyperlipidemia, unspecified; Z96.653 Presence of artificial knee joint, bilateral; X58.XXXA Exposure to other specified factors, initial encounter; Y93.89 Activity, other specified; Y92.89 Other specified places as the place of occurrence of the external cause; Y99.8 Other external cause status | CPT/HCPCS: 11042; 87070 ×2; 87076 ×2; 87077; 87186; A6248 ==

== ENCOUNTER → 2023-10-14 | Outpatient (CLI) | payer OTHER, MEDICARE ==
[~2023-10-14] MED LIST changes: +LIDOCAINE HCL 4% LTA SOL 4 ML VIAL TP ONE
== END | disposition home or self-care (01) ==
LOC: WHH 10:50
PROVIDERS: ATTEND Podiatrist Foot & Ankle Surgery
DX: S61.204D Unspecified open wound of right ring finger without damage to nail, subsequent encounter (principal); S61.203D Unspecified open wound of left middle finger without damage to nail, subsequent encounter; E11.622 Type 2 diabetes mellitus with other skin ulcer; L98.491 Non-pressure chronic ulcer of skin of other sites limited to breakdown of skin; M1A.0420 Idiopathic chronic gout, left hand, without tophus (tophi); M1A.0411 Idiopathic chronic gout, right hand, with tophus (tophi); E11.42 Type 2 diabetes mellitus with diabetic polyneuropathy; I10 Essential (primary) hypertension; E78.5 Hyperlipidemia, unspecified; Z96.653 Presence of artificial knee joint, bilateral; Z79.899 Other long term (current) drug therapy; X58.XXXD Exposure to other specified factors, subsequent encounter
CPT/HCPCS: G0463

== ENCOUNTER → 2023-10-28 | Outpatient (CLI) | payer OTHER, MEDICARE | END | disposition home or self-care (01) | LOC: WHH 10:52 | PROVIDERS: ATTEND Nurse Practitioner Family | DX: S61.204D Unspecified open wound of right ring finger without damage to nail, subsequent encounter (principal); S61.203D Unspecified open wound of left middle finger without damage to nail, subsequent encounter; E11.622 Type 2 diabetes mellitus with other skin ulcer; L98.491 Non-pressure chronic ulcer of skin of other sites limited to breakdown of skin; M1A.0420 Idiopathic chronic gout, left hand, without tophus (tophi); M1A.0411 Idiopathic chronic gout, right hand, with tophus (tophi); E11.42 Type 2 diabetes mellitus with diabetic polyneuropathy; I10 Essential (primary) hypertension; E78.5 Hyperlipidemia, unspecified; Z96.653 Presence of artificial knee joint, bilateral; Z79.899 Other long term (current) drug therapy; X58.XXXD Exposure to other specified factors, subsequent encounter | CPT/HCPCS: G0463; A6209 ==

== ENCOUNTER → 2024-01-13 | Outpatient (CLI) | payer OTHER, MEDICARE ==
[~2024-01-13] MED LIST changes: -LIDOCAINE HCL 4% LTA SOL 4 ML VIAL TP ONE
== END | disposition home or self-care (01) ==
LOC: WHH 09:54
PROVIDERS: ATTEND Family Medicine
DX: S61.203D Unspecified open wound of left middle finger without damage to nail, subsequent encounter (principal); E83.59 Other disorders of calcium metabolism; S61.204D Unspecified open wound of right ring finger without damage to nail, subsequent encounter; E11.622 Type 2 diabetes mellitus with other skin ulcer; L98.492 Non-pressure chronic ulcer of skin of other sites with fat layer exposed; E11.42 Type 2 diabetes mellitus with diabetic polyneuropathy; I10 Essential (primary) hypertension; E78.5 Hyperlipidemia, unspecified; M1A.0411 Idiopathic chronic gout, right hand, with tophus (tophi); M1A.0420 Idiopathic chronic gout, left hand, without tophus (tophi); Z96.653 Presence of artificial knee joint, bilateral; Z79.899 Other long term (current) drug therapy; X58.XXXD Exposure to other specified factors, subsequent encounter
CPT/HCPCS: G0463; A6248; A4450